=== PATIENT | female | born 1935 | race Caucasian/White ===

== ENCOUNTER 2016-08-04 16:25 | Inpatient (IN) | payer MEDICARE ==
[2016-08-04] MEDS ORDERED: Albuterol/Ipratropium NEB.SOL* Albuterol 2.5 MG/Ipratropium 0.5 MG 3 ML INH ONE (18:05)
[2016-08-04] MEDS ORDERED: NS 0.9% 1000 ML* 1,000 ML IV SCH ×2 (18:15→21:00)
[2016-08-04 18:40] LABS: Hematocrit 44 % (35-47); Hemoglobin 14.4 g/dl (12.0-16.0); Mean Corpuscular HGB Conc 33 g/dl (31-36); Mean Corpuscular Hemoglobin 29 pg (27-31); Mean Corpuscular Volume 87 fL (80-97); Mean Platelet Volume 7 um3 (7.4-10.4); Red Cell Distribution Width 14 % (10.5-15); White Blood Count 19.3 10^3/ul (3.5-10.8)
[2016-08-04 18:41] LABS: Add Diff/Slide Review? Slide Review Added; Comments Flag Yes
[2016-08-04 18:54] LABS: Albumin 3.8 g/dL (3.2-5.2); BUN/Creatinine Ratio 10.3 (8-20); C Reactive Protein 115.74 mg/L (< 5.00); Calcium 9.7 mg/dL (8.6-10.3); EGFR African American 91.2 (>60); EGFR Non-African American 70.9 (>60); Globulin 3.8 g/dL (2-4); Magnesium 1.9 mg/dL (1.9-2.7); Potassium 3.8 mmol/L (3.5-5.0); Total Bilirubin 0.6 mg/dL (0.2-1.0); Total Protein 7.6 g/dL (6.4-8.9)
--- NOTE | 2016-08-04 18:55 | RAD ---
INDICATION: Productive cough. Shortness of breath, inspiratory crackles. Former tobacco use. Cardiac disease. COMPARISON: May 18, 2014 TECHNIQUE: Dual energy PA and routine lateral views of the chest were obtained. REPORT: Bilateral interstitial and alveolar opacities. Increased prominence of the interstitial markings compared with the prior exam. Probable small pleural effusions. Median sternotomy wires. Mild cardiomegaly. Unremarkable central pulmonary vasculature. IMPRESSION: The constellation of findings is concerning for bronchopneumonia superimposed on chronic obstructive pulmonary disease.
[2016-08-04 18:58] LABS: Troponin I 0.04 ng/mL (<0.04)
[2016-08-04] MEDS ORDERED: NS 0.9% 1000 ML* 2,000 ML IV ONE (19:11)
[2016-08-04] MEDS ORDERED: Levofloxacin 750 MG IVPREMIX(* 750 MG/150 ML BAG IVPB ONE (19:12)
[2016-08-04 19:39] LABS: TSH (Thyroid Stimulating Horm) 0.65 mcIU/mL (0.34-5.60)
--- NOTE | 2016-08-04 20:35 | ED ---
Peter Leroy Karl, scribed for Ismael Aleman MD on 08/04/16 at 1806 . Shortness of Breath - HPI Summary HPI Summary: Pt is an 80 y/o female brought in by her children that presents to the ED c/o SOB. Pt reported that she was having SOB, difficulty breathing, and has had a productive cough with green sputum since 07/09/16. Pt also reported nausea, chills, and nasal congestion in the morning when first waking up. Pt stated that lying flat slightly alleviates her symptoms while walking aggravates them. Pt denied CP, pedal edema, and rhinorrhea. Hx: CAD, HTN, HLD, former smoker. - History of Current Complaint Time Seen by Provider: 08/04/16 17:59 Hx Obtained From: Patient Onset/Duration: Gradual Onset, Lasting Weeks, Still Present Timing: Constant Current Severity: Moderate Dyspnea At: Rest Aggrevating Factors: Movement - walking Associated Signs & Symptoms: Cough (Productive) - green sputum, Chills, Nasal Congestion - Allergy/Home Medications Allergies/Adverse Reactions: Allergies Allergy/AdvReac Type Severity Reaction Status Date / Time Bee Venom Allergy Severe Swelling Verified 03/19/15 10:52 Penicillins Allergy Intermediate Hives Verified 03/19/15 10:52 Enalapril AdvReac Intermediate Coughing Verified 03/19/15 10:52 Lactose AdvReac Intermediate Nausea Verified 03/19/15 10:52 Ramipril [From Altace] AdvReac Intermediate Coughing Verified 03/19/15 10:52 Statins AdvReac Intermediate Leg Cramps Verified 03/19/15 10:52 Home Medications: Home Medications Aspirin EC Low Dose* [Ecotrin EC Low Dose*] 81 mg PO DAILY 08/04/16 [History Confirmed 08/04/16] Krill Oil [Krill Oil 1000 mg] 1 cap PO DAILY 08/04/16 [History Confirmed ] Levothyroxine TAB* [Synthroid TAB*] 88 mcg PO DAILY 08/04/16 [History Confirmed 08/04/16] Multivitamins/Minerals TAB* [Theragran/minerals TAB*] 1 tab PO DAILY 08/04/16 [ History Confirmed 08/04/16] amLODIPine TAB* [Norvasc TAB*] 2.5 mg PO DAILY 08/04/16 [History Confirmed 08/04] PMH/Surg Hx/FS Hx/Imm Hx Endocrine/Hematology History: Denies: Hx Diabetes Cardiovascular History: Reports: Hx Coronary Artery Disease, Hx Hypercholesterolemia, Hx Hypertension, Hx Valvular Heart Disease Denies: Hx Angina Respiratory History: Denies: Hx Asthma, Hx Chronic Obstructive Pulmonary Disease (COPD) - Cancer History Hx Chemotherapy: No Hx Radiation Therapy: No - Family History Known Family History: Negative: Cardiac Disease, Hypertension, Diabetes - Social History Alcohol Use: None Substance Use Type: Reports: None Smoking Status (MU): Former Smoker Type: Cigarettes Have You Smoked in the Last Year: No Review of Systems Positive: Chills Eyes: Negative ENT: Other - nasal congestion Negative: Nasal Discharge Cardiovascular: Other - tachycardia Negative: Chest Pain Positive: Shortness Of Breath, Cough - productive w/ green sputum Gastrointestinal: Negative Genitourinary: Negative Negative: Edema Skin: Negative Neurological: Negative Psychological: Normal All Other Systems Reviewed And Are Negative: Yes Physical Exam Triage Information Reviewed: Yes Vital Signs On Initial Exam: Initial Vital Signs Temp 99.9 F 08/04/16 17:58 Pulse 104 08/04/16 17:58 Resp 20 08/04/16 17:58 BP 173/62 08/04/16 17:58 Pulse Ox 94 08/04/16 17:58 Vital Signs Reviewed: Yes Appearance: Positive: Well-Appearing, No Pain Distress Skin: Positive: Warm, Skin Color Reflects Adequate Perfusion, Dry Head/Face: Positive: Normal Head/Face Inspection Eyes: Positive: EOMI, BRYSON ENT: Positive: Normal ENT inspection Neck: Positive: Supple, Nontender Respiratory/Lung Sounds: Positive: Breath Sounds Present, Other - inspiratory crackles bilaterally Cardiovascular: Positive: Tachycardia - at 104 bpm Abdomen Description: Positive: Nontender, Soft Bowel Sounds: Positive: Present Musculoskeletal: Positive: Normal, Strength/ROM Intact Neurological: Positive: Normal, Sensory/Motor Intact, Alert, Oriented to Person Place, Time Psychiatric: Positive: Affect/Mood Appropriate Diagnostics - Vital Signs Vital Signs Temp Pulse Resp BP Pulse Ox 08/04/16 18:37 91 19 96 08/04/16 18:24 20 08/04/16 17:58 99.9 F 104 20 173/62 94 - Laboratory Lab Results: Lab Results 08/04/16 08/04/16 08/04/16 Range/Units 18:27 18:27 18:27 WBC 19.3 H (3.5-10.8) 10^3/ul RBC 5.00 (4.0-5.4) 10^6/ul Hgb 14.4 (12.0-16.0) g/dl Hct 44 (35-47) % MCV 87 (80-97) fL MCH 29 (27-31) pg MCHC 33 (31-36) g/dl RDW 14 (10.5-15) % Plt Count 365 (150-450) 10^3/ul MPV 7 L (7.4-10.4) um3 Neut % (Auto) 89.2 H (38-83) % Lymph % (Auto) 5.6 L (25-47) % Sawyer % (Auto) 4.2 (1-9) % Eos % (Auto) 0.5 (0-6) % Baso % (Auto) 0.5 (0-2) % Absolute Neuts (auto) 17.2 H (1.5-7.7) 10^3/ul Absolute Lymphs (auto) 1.1 (1.0-4.8) 10^3/ul Absolute Monos (auto) 0.8 (0-0.8) 10^3/ul Absolute Eos (auto) 0.1 (0-0.6) 10^3/ul Absolute Basos (auto) 0.1 (0-0.2) 10^3/ul Absolute Nucleated RBC 0 10^3/ul Nucleated RBC % 0 INR (Anticoag Therapy) 1.10 (0.89-1.11) APTT 33.7 (26.0-36.3) seconds Sodium 133 (133-145) mmol/L Potassium 3.8 (3.5-5.0) mmol/L Chloride 98 L (101-111) mmol/L Carbon Dioxide 25 (22-32) mmol/L Anion Gap 10 (2-11) mmol/L BUN 8 (6-24) mg/dL Creatinine 0.78 (0.51-0.95) mg/dL Est GFR ( Amer) 91.2 (>60) Est GFR (Non-Af Amer) 70.9 (>60) BUN/Creatinine Ratio 10.3 (8-20) Glucose 119 H (70-100) mg/dL Lactic Acid (0.5-2.0) mmol/L Calcium 9.7 (8.6-10.3) mg/dL Magnesium 1.9 (1.9-2.7) mg/dL Total Bilirubin 0.60 (0.2-1.0) mg/dL AST 26 (13-39) U/L ALT 22 (7-52) U/L Alkaline Phosphatase 79 (34-104) U/L Total Creatine Kinase 62 (10-223) U/L CK-MB (CK-2) 3.9 (0.6-6.3) ng/mL Troponin I 0.04 H* (<0.04) ng/mL C-Reactive Protein 115.74 H (< 5.00) mg/L B-Natriuretic Peptide ( - 100) pg/mL Total Protein 7.6 (6.4-8.9) g/dL Albumin 3.8 (3.2-5.2) g/dL Globulin 3.8 (2-4) g/dL Albumin/Globulin Ratio 1.0 (1-3) Lipase 43 (11.0-82.0) U/L TSH 0.65 (0.34-5.60) mcIU/mL 08/04/16 08/04/16 Range/Units 18:27 18:27 WBC (3.5-10.8) 10^3/ul RBC (4.0-5.4) 10^6/ul Hgb (12.0-16.0) g/dl Hct (35-47) % MCV (80-97) fL MCH (27-31) pg MCHC (31-36) g/dl RDW (10.5-15) % Plt Count (150-450) 10^3/ul MPV (7.4-10.4) um3 Neut % (Auto) (38-83) % Lymph % (Auto) (25-47) % Sawyer % (Auto) (1-9) % Eos % (Auto) (0-6) % Baso % (Auto) (0-2) % Absolute Neuts (auto) (1.5-7.7) 10^3/ul Absolute Lymphs (auto) (1.0-4.8) 10^3/ul Absolute Monos (auto) (0-0.8) 10^3/ul Absolute Eos (auto) (0-0.6) 10^3/ul Absolute Basos (auto) (0-0.2) 10^3/ul Absolute Nucleated RBC 10^3/ul Nucleated RBC % INR (Anticoag Therapy) (0.89-1.11) APTT (26.0-36.3) seconds Sodium (133-145) mmol/L Potassium (3.5-5.0) mmol/L Chloride (101-111) mmol/L Carbon Dioxide (22-32) mmol/L Anion Gap (2-11) mmol/L BUN (6-24) mg/dL Creatinine (0.51-0.95) mg/dL Est GFR ( Amer) (>60) Est GFR (Non-Af Amer) (>60) BUN/Creatinine Ratio (8-20) Glucose (70-100) mg/dL Lactic Acid 1.7 (0.5-2.0) mmol/L Calcium (8.6-10.3) mg/dL Magnesium (1.9-2.7) mg/dL Total Bilirubin (0.2-1.0) mg/dL AST (13-39) U/L ALT (7-52) U/L Alkaline Phosphatase (34-104) U/L Total Creatine Kinase (10-223) U/L CK-MB (CK-2) (0.6-6.3) ng/mL Troponin I (<0.04) ng/mL C-Reactive Protein (< 5.00) mg/L B-Natriuretic Peptide 112 H ( - 100) pg/mL Total Protein (6.4-8.9) g/dL Albumin (3.2-5.2) g/dL Globulin (2-4) g/dL Albumin/Globulin Ratio (1-3) Lipase (11.0-82.0) U/L TSH (0.34-5.60) mcIU/mL Result Diagrams: 08/04/16 18:27 08/04/16 18:27 Lab Statement: Any lab studies that have been ordered have been reviewed, and results considered in the medical decision making process. - Radiology CXR Xray Interpretation: Positive (See Comments) Radiology Interpretation Completed By: Radiologist - IMPRESSION: The constellation of findings is concerning for bronchopneumonia superimposed on chronic obstructive pulmonary disease. - EKG 16:35 Cardiac Rate: Tachycardia - at 111 bpm EKG Rhythm: Sinus Tachycardia Ectopy: None EKG Interpretation: LVH Course/Dx - Course Assessment/Plan: DISCUSSED RESULTS WITH PATIENT. ON SATS LOW 80'S. ADMIT HOSPITALIST STABLE. - Diagnoses Provider Diagnoses: Pneumonia, Hypoxia Discharge - Discharge Plan Condition: Stable Disposition: ADMITTED TO [facility] Referrals: Quiana Panda MD [Primary Care Provider] - The documentation as recorded by the Peter sam Karl accurately reflects the service I personally performed and the decisions made by me, Ismael Aleman MD.
--- NOTE | 2016-08-04 20:38 | HP ---
H&P (Free Text) History and Physical: PCP: Miguel Virgen MD Date/Time of Evaluation: 08/04/20162034 CC: SOB HPI: Mrs Thomas is an 80YO female presents at encouragement of family for evaluation of cough productive of green phlegm since 07/09/2016. She has had gradual worsening of her condition to include chills, nausea without emesis, and exertional dyspnea. She denies chest pain, focal W/N/T, or other issues. Work up is significant for sepsis (leukocytosis, tachycardia, tachypnea, & hypoxia) 2nd CAP with an indeterminate troponin of 0.04. PMedHx CAD/3vCABG HTN hypothyroidism HLD Allergies Bee Venom Allergy (Severe, Verified 03/19/15 10:52) Swelling Penicillins Allergy (Intermediate, Verified 03/19/15 10:52) Hives Enalapril Adverse Reaction (Intermediate, Verified 03/19/15 10:52) Coughing Lactose Adverse Reaction (Intermediate, Verified 03/19/15 10:52) Nausea Ramipril [From Altace] Adverse Reaction (Intermediate, Verified 03/19/15 10:52) Coughing Statins Adverse Reaction (Intermediate, Verified 03/19/15 10:52) Leg Cramps Ambulatory Orders Calcium Carbonate-Cholecalcife [Calcium 600+D 600-800 mg-Unit] 1 tab PO DAILY Aspirin EC Low Dose* [Ecotrin EC Low Dose*] 81 mg PO DAILY 08/04/16 Krill Oil [Krill Oil 1000 mg] 1 cap PO DAILY 08/04/16 Levothyroxine TAB* [Synthroid TAB*] 88 mcg PO DAILY 08/04/16 Multivitamins/Minerals TAB* [Theragran/minerals TAB*] 1 tab PO DAILY 08/04/16 amLODIPine TAB* [Norvasc TAB*] 2.5 mg PO DAILY 08/04/16 SocHx: former smoker, no alcohol or recreational drugs; lives alone; full code status FamHx: reviewed, non-contributory ROS: as above, otherwise reviewed and all were negative Constitutional: NAD, normally developed, overweight elderly white female vitals: Vital Signs Temp 37.7 C 08/04/16 17:58 Pulse 94 08/04/16 18:37 Resp 21 08/04/16 18:37 BP 173/62 08/04/16 17:58 Pulse Ox 96 08/04/16 18:37 Intake & Output 08/03/16 08/04/16 08/04/16 23:59 11:59 23:59 Weight 143 lb HEENM: atraumatic; sclera/conjunctiva: non-icteric/clear; blephara: normal; hearing: clinically intact; oropharynx: clear, mucosa moist Neck: soft tissue: non-tender; thyroid: normal Pulmonary: mild LLL crackle with scant B end-expiratory wheeze, good to fair aeration, no accessory muscle use CV: TR/RR, normal S1S2, no carotid bruit, no jugular venous distention, 2+ B DP/ PT, no edema Abdominal: soft, non-distended, non-tender, no rebound/guarding/rigidity, normoactive bowel sounds, no hepatosplenomegaly or masses, no costovertebral angle tenderness Musculoskeletal: general: grossly intact; gait: stable Integumental: normal appearance and texture Psychiatric orientation: AA&O to PPS affect: calm mood: pleasant eye contact: good content: reliable responses: timely insight: fair Testing: Lab Results 08/04/16 08/04/16 08/04/16 Range/Units 18:27 18:27 18:27 WBC 19.3 H (3.5-10.8) 10^3/ul RBC 5.00 (4.0-5.4) 10^6/ul Hgb 14.4 (12.0-16.0) g/dl Hct 44 (35-47) % MCV 87 (80-97) fL MCH 29 (27-31) pg MCHC 33 (31-36) g/dl RDW 14 (10.5-15) % Plt Count 365 (150-450) 10^3/ul MPV 7 L (7.4-10.4) um3 Neut % (Auto) 89.2 H (38-83) % Lymph % (Auto) 5.6 L (25-47) % Preble % (Auto) 4.2 (1-9) % Eos % (Auto) 0.5 (0-6) % Baso % (Auto) 0.5 (0-2) % Absolute Neuts (auto) 17.2 H (1.5-7.7) 10^3/ul Absolute Lymphs (auto) 1.1 (1.0-4.8) 10^3/ul Absolute Monos (auto) 0.8 (0-0.8) 10^3/ul Absolute Eos (auto) 0.1 (0-0.6) 10^3/ul Absolute Basos (auto) 0.1 (0-0.2) 10^3/ul Absolute Nucleated RBC 0 10^3/ul Nucleated RBC % 0 INR (Anticoag Therapy) 1.10 (0.89-1.11) APTT 33.7 (26.0-36.3) seconds Sodium 133 (133-145) mmol/L Potassium 3.8 (3.5-5.0) mmol/L Chloride 98 L (101-111) mmol/L Carbon Dioxide 25 (22-32) mmol/L Anion Gap 10 (2-11) mmol/L BUN 8 (6-24) mg/dL Creatinine 0.78 (0.51-0.95) mg/dL Est GFR ( Amer) 91.2 (>60) Est GFR (Non-Af Amer) 70.9 (>60) BUN/Creatinine Ratio 10.3 (8-20) Glucose 119 H (70-100) mg/dL Lactic Acid (0.5-2.0) mmol/L Calcium 9.7 (8.6-10.3) mg/dL Magnesium 1.9 (1.9-2.7) mg/dL Total Bilirubin 0.60 (0.2-1.0) mg/dL AST 26 (13-39) U/L ALT 22 (7-52) U/L Alkaline Phosphatase 79 (34-104) U/L Total Creatine Kinase 62 (10-223) U/L CK-MB (CK-2) 3.9 (0.6-6.3) ng/mL Troponin I 0.04 H* (<0.04) ng/mL C-Reactive Protein 115.74 H (< 5.00) mg/L B-Natriuretic Peptide ( - 100) pg/mL Total Protein 7.6 (6.4-8.9) g/dL Albumin 3.8 (3.2-5.2) g/dL Globulin 3.8 (2-4) g/dL Albumin/Globulin Ratio 1.0 (1-3) Lipase 43 (11.0-82.0) U/L TSH 0.65 (0.34-5.60) mcIU/mL 08/04/16 08/04/16 Range/Units 18:27 18:27 WBC (3.5-10.8) 10^3/ul RBC (4.0-5.4) 10^6/ul Hgb (12.0-16.0) g/dl Hct (35-47) % MCV (80-97) fL MCH (27-31) pg MCHC (31-36) g/dl RDW (10.5-15) % Plt Count (150-450) 10^3/ul MPV (7.4-10.4) um3 Neut % (Auto) (38-83) % Lymph % (Auto) (25-47) % Preble % (Auto) (1-9) % Eos % (Auto) (0-6) % Baso % (Auto) (0-2) % Absolute Neuts (auto) (1.5-7.7) 10^3/ul Absolute Lymphs (auto) (1.0-4.8) 10^3/ul Absolute Monos (auto) (0-0.8) 10^3/ul Absolute Eos (auto) (0-0.6) 10^3/ul Absolute Basos (auto) (0-0.2) 10^3/ul Absolute Nucleated RBC 10^3/ul Nucleated RBC % INR (Anticoag Therapy) (0.89-1.11) APTT (26.0-36.3) seconds Sodium (133-145) mmol/L Potassium (3.5-5.0) mmol/L Chloride (101-111) mmol/L Carbon Dioxide (22-32) mmol/L Anion Gap (2-11) mmol/L BUN (6-24) mg/dL Creatinine (0.51-0.95) mg/dL Est GFR ( Amer) (>60) Est GFR (Non-Af Amer) (>60) BUN/Creatinine Ratio (8-20) Glucose (70-100) mg/dL Lactic Acid 1.7 (0.5-2.0) mmol/L Calcium (8.6-10.3) mg/dL Magnesium (1.9-2.7) mg/dL Total Bilirubin (0.2-1.0) mg/dL AST (13-39) U/L ALT (7-52) U/L Alkaline Phosphatase (34-104) U/L Total Creatine Kinase (10-223) U/L CK-MB (CK-2) (0.6-6.3) ng/mL Troponin I (<0.04) ng/mL C-Reactive Protein (< 5.00) mg/L B-Natriuretic Peptide 112 H ( - 100) pg/mL Total Protein (6.4-8.9) g/dL Albumin (3.2-5.2) g/dL Globulin (2-4) g/dL Albumin/Globulin Ratio (1-3) Lipase (11.0-82.0) U/L TSH (0.34-5.60) mcIU/mL ECG, personally reviewed: sinus tachycardia w/ PACs rate 111, no ischemia CXR, personally reviewed: IMPRESSION: The constellation of findings is concerning for bronchopneumonia superimposed on chronic obstructive pulmonary disease. Impression: 80F presenting with sepsis 2nd CAP DIAGNOSIS & PLAN Primary sepsis (leukocytosis, tachycardia, tachypnea, hypoxia) 2nd CAP : IVFs : IV levofloxacin : blood & sputum CXs : urine Legionella & S pneumo antigens : rapid influenza : supplemental oxygen : supportive care elevated troponin : suspect demand ischemia : telemetry : aspirin : trend COPD exacerbation : albuterol nebs : mometasone/formoterol : tiotropium : incentive spirometry : guaifenesin : supplemental oxygen : methylprednisolone IV Secondary HTN : continue amlodipine, monitor CAD : continue aspirin hypothyroidism : continue levothyroxine HLD : heart healthy diet Admission Rational: inpatient for management of sepsis via IVFs & IV ABX in patient at high risk of rapid severe/terminal decompensation DVTp: heparin SQ & SCDs Code Status: full HCP: son, Juan
[2016-08-04] MEDS ORDERED: CMCS: Melatonin (NF) 3 MG TAB PO PRN (20:53)
[2016-08-04] MEDS ORDERED: Albuterol 2.5 MG/3 ML NEB.SOL* (0.083%) INH PRN (20:53)
[2016-08-04] MEDS ORDERED: Acetaminophen TAB* 325 MG PO PRN (20:53)
[2016-08-04] MEDS ORDERED: Morphine INJ* 2 MG/ML 1 ML CARPUJECT IV PRN (20:53)
[2016-08-04] MEDS ORDERED: traMADol TAB* 50 MG PO PRN (20:54)
[2016-08-04] MEDS ORDERED: Ondansetron INJ* 2 MG/ML VIAL IV PRN (20:54)
[2016-08-04] MEDS ORDERED: methylPREDNISolone 125 MG* 2 ML VIAL IV ONE (20:55)
[2016-08-04 23:04] LABS: Urine Bacteria 3+ (Absent); Urine Bilirubin Negative (Negative); Urine Glucose Negative (Negative); Urine Nitrite Negative (Negative)
[2016-08-04] MEDS: Docusate CAP* 100 MG PO SCH (23:46)
[2016-08-04] MEDS: Aspirin TAB* 325 MG PO SCH (23:46)
[2016-08-05] MEDS: Albuterol 2.5 MG/3 ML NEB.SOL* (0.083%) INH SCH ×4 (00:03→19:20)
[2016-08-05] MEDS: Mometasone/Formoter 200/5 MDI INH SCH ×3 (00:04→19:21)
[2016-08-05] MEDS: Heparin VIAL(*) 5000 UNITS/ML VIAL (FIVE THOUSAND) SUBCUT SCH ×3 (05:36→22:06)
[2016-08-05] MEDS: Levothyroxine TAB* 88 MCG TAB PO SCH (05:37)
[2016-08-05] MEDS: Omeprazole CAP* 20 MG PO SCH (05:37)
[2016-08-05 05:58] LABS: Hematocrit 39 % (35-47); Hemoglobin 12.9 g/dl (12.0-16.0); Mean Corpuscular HGB Conc 33 g/dl (31-36); Mean Corpuscular Hemoglobin 29 pg (27-31); Mean Corpuscular Volume 87 fL (80-97); Mean Platelet Volume 7 um3 (7.4-10.4); Red Blood Count 4.52 10^6/ul (4.0-5.4); Red Cell Distribution Width 13 % (10.5-15)
[2016-08-05 06:15] LABS: BUN/Creatinine Ratio 11.4 (8-20); Calcium 8.6 mg/dL (8.6-10.3); EGFR African American 103.3 (>60); EGFR Non-African American 80.3 (>60); Potassium 3.5 mmol/L (3.5-5.0)
[2016-08-05] MEDS: Tiotropium CAP.INH* CAP.INH/18 MCG (USE ORDER SET !) INH SCH (07:38)
[2016-08-05] MEDS: methylPREDNISolone SOD 40 MG* 1 ML VIAL IV SCH ×2 (08:54→17:10)
[2016-08-05] MEDS: Aspirin TAB* 325 MG PO SCH (08:55)
[2016-08-05] MEDS: Docusate CAP* 100 MG PO SCH ×2 (08:55→20:38)
[2016-08-05] MEDS ORDERED: Spiriva Inhaler DEVICE* 1 EACH DEVICE INH ONE (09:00)
[2016-08-05] MEDS ORDERED: amLODIPine TAB* 5 MG PO SCH (09:00)
[2016-08-05] MEDS: Aspirin Low Dose CHEW TAB* 81 MG PO SCH (10:06)
[2016-08-05 10:38] LABS: Troponin I 0.05 ng/mL (<0.04)
--- NOTE | 2016-08-05 11:05 | PN ---
Subjective Date of Service: 08/05/16 Interval History: Patient seen and examined at bedside. She reports improvement in her breathing but states she still feels very fatigued and becomes easily winded. She lives alone. She does not wear oxygen at home but still requires O2 this AM. She denies CP, abd pain, n/v, fever/chills. No nursing concerns this AM. Telemetry: SR 70s-80s Family History: Unchanged from Admission Social History: Unchanged from Admission Past Medical History: Unchanged from Admission Objective Active Medications: Acetaminophen (Tylenol Tab*) 650 mg PO Q6H PRN PRN Reason: FEVER/PAIN Albuterol (Ventolin 2.5 Mg/3 Ml Neb.[place]*) 2.5 mg INH Q2H PRN PRN Reason: SOB/WHEEZING Albuterol (Ventolin 2.5 Mg/3 Ml Neb.[place]*) 2.5 mg INH [id number] AWAKE [facility] Last Admin: 08/05/16 07:37 Dose: 2.5 mg Amlodipine Besylate (Norvasc Tab*) 2.5 mg PO DAILY [facility] Last Admin: 08/05/16 08:55 Dose: 2.5 mg Aspirin (Aspirin Low Dose Tab*) 81 mg PO DAILY [facility] Last Admin: 08/05/16 10:06 Dose: 81 mg Docusate Sodium (Colace Cap*) 200 mg PO BID [facility] Last Admin: 08/05/16 08:55 Dose: 200 mg Heparin Sodium (Porcine) (Heparin Vial(*)) 5,000 units SUBCUT Q8HR [facility] Last Admin: 08/05/16 05:36 Dose: 5,000 units Sodium Chloride (Ns 0.9% 1000 Ml*) 1,000 mls @ 125 mls/hr IV PER RATE [facility] Levofloxacin/Dextrose (Levaquin 750 Mg Ivpremix(*)) 750 mg in 150 mls @ 100 mls /hr IVPB Q24H [facility] Levothyroxine Sodium (Synthroid Tab*) 88 mcg PO DAILY@0600 [facility] Last Admin: 08/05/16 05:37 Dose: 88 mcg Melatonin (Melatonin (Nf)) 3 mg PO BEDTIME PRN; Protocol PRN Reason: Sleep Methylprednisolone Sodium Succinate (Solu-Medrol*) 40 mg IV Q8H [facility] Last Admin: 08/05/16 08:54 Dose: 40 mg Mometasone Furoate/Formoterol Fumar (Dulera 200/5 Mdi*) 2 puff INH BID [facility] Last Admin: 08/05/16 07:38 Dose: 2 puff Morphine Sulfate (Morphine Inj (Syringe)*) 1 mg IV Q2H PRN PRN Reason: air hunger Omeprazole (Prilosec Cap*) 20 mg PO DAILY@0600 [facility] Last Admin: 08/05/16 05:37 Dose: 20 mg Ondansetron HCl (Zofran Inj*) 4 mg IV Q6H PRN PRN Reason: NAUSEA Tiotropium [place] (Spiriva Cap.Inh*) 1 cap INH DAILY [facility] Last Admin: 08/05/16 07:38 Dose: 1 cap.inh Tramadol HCl (Ultram*) 50 mg PO Q6H PRN PRN Reason: PAIN Vital Signs 08/04/16 08/04/16 08/04/16 21:00 21:30 22:00 Temperature Pulse Rate 87 91 80 Respiratory 26 22 25 Rate Blood Pressure 140/56 122/98 145/46 (mmHg) O2 Sat by Pulse 96 93 94 Oximetry 08/04/16 08/05/16 08/05/16 23:30 00:05 02:39 Temperature 97.7 F Pulse Rate 78 82 Respiratory 18 22 Rate Blood Pressure 154/52 (mmHg) O2 Sat by Pulse 91 96 96 Oximetry 08/05/16 08/05/16 08/05/16 03:49 07:42 08:05 Temperature 97.8 F Pulse Rate 83 82 99 Respiratory 24 14 16 Rate Blood Pressure 148/62 159/60 (mmHg) O2 Sat by Pulse 97 94 93 Oximetry Oxygen Devices in Use Now: Nasal Cannula - 3Lnc Appearance: Older female, sitting on edge of bed, audibly wheezing, in NAD Eyes: PERRLA Ears/Nose/Mouth/Throat: Clear Oropharnyx, Mucous Membranes Moist Neck: NL Appearance and Movements; NL JVP Respiratory: Symmetrical Chest Expansion and Respiratory Effort, Clear to Auscultation - with scattered wheezes, prolonged expiratory phase Cardiovascular: NL Sounds; No Murmurs; No JVD, RRR Abdominal: NL Sounds; No Tenderness; No Distention Extremities: No Clubbing, Cyanosis - trace LE edema Skin: No Rash or Ulcers Neurological: Alert and Oriented x 3 Lines/Tubes/Other Access: Clean, Dry and Intact Peripheral IV Nutrition: Taking PO's Result Diagrams: 08/05/16 04:48 08/05/16 04:48 Additional Lab and Data: Lab Results 08/04/16 08/04/16 08/04/16 Range/Units 18:27 18:27 18:27 WBC 19.3 H (3.5-10.8) 10^3/ul RBC 5.00 (4.0-5.4) 10^6/ul Hgb 14.4 (12.0-16.0) g/dl Hct 44 (35-47) % MCV 87 (80-97) fL MCH 29 (27-31) pg MCHC 33 (31-36) g/dl RDW 14 (10.5-15) % Plt Count 365 (150-450) 10^3/ul MPV 7 L (7.4-10.4) um3 Neut % (Auto) 89.2 H (38-83) % Lymph % (Auto) 5.6 L (25-47) % [place] % (Auto) 4.2 (1-9) % Eos % (Auto) 0.5 (0-6) % Baso % (Auto) 0.5 (0-2) % Absolute Neuts (auto) 17.2 H (1.5-7.7) 10^3/ul Absolute Lymphs (auto) 1.1 (1.0-4.8) 10^3/ul Absolute Monos (auto) 0.8 (0-0.8) 10^3/ul Absolute Eos (auto) 0.1 (0-0.6) 10^3/ul Absolute Basos (auto) 0.1 (0-0.2) 10^3/ul Absolute Nucleated RBC 0 10^3/ul Nucleated RBC % 0 INR (Anticoag Therapy) 1.10 (0.89-1.11) APTT 33.7 (26.0-36.3) seconds Sodium 133 (133-145) mmol/L Potassium 3.8 (3.5-5.0) mmol/L Chloride 98 L (101-111) mmol/L Carbon Dioxide 25 (22-32) mmol/L Anion Gap 10 (2-11) mmol/L BUN 8 (6-24) mg/dL Creatinine 0.78 (0.51-0.95) mg/dL Est GFR ( Amer) 91.2 (>60) Est GFR (Non-Af Amer) 70.9 (>60) BUN/Creatinine Ratio 10.3 (8-20) Glucose 119 H (70-100) mg/dL Lactic Acid (0.5-2.0) mmol/L Calcium 9.7 (8.6-10.3) mg/dL Magnesium 1.9 (1.9-2.7) mg/dL Total Bilirubin 0.60 (0.2-1.0) mg/dL AST 26 (13-39) U/L ALT 22 (7-52) U/L Alkaline Phosphatase 79 (34-104) U/L Total Creatine Kinase 62 (10-223) U/L CK-MB (CK-2) 3.9 (0.6-6.3) ng/mL Troponin I 0.04 H* (<0.04) ng/mL C-Reactive Protein 115.74 H (< 5.00) mg/L B-Natriuretic Peptide ( - 100) pg/mL Total Protein 7.6 (6.4-8.9) g/dL Albumin 3.8 (3.2-5.2) g/dL Globulin 3.8 (2-4) g/dL Albumin/Globulin Ratio 1.0 (1-3) Lipase 43 (11.0-82.0) U/L TSH 0.65 (0.34-5.60) mcIU/mL 08/04/16 08/04/16 Range/Units 18:27 18:27 WBC (3.5-10.8) 10^3/ul RBC (4.0-5.4) 10^6/ul Hgb (12.0-16.0) g/dl Hct (35-47) % MCV (80-97) fL MCH (27-31) pg MCHC (31-36) g/dl RDW (10.5-15) % Plt Count (150-450) 10^3/ul MPV (7.4-10.4) um3 Neut % (Auto) (38-83) % Lymph % (Auto) (25-47) % [place] % (Auto) (1-9) % Eos % (Auto) (0-6) % Baso % (Auto) (0-2) % Absolute Neuts (auto) (1.5-7.7) 10^3/ul Absolute Lymphs (auto) (1.0-4.8) 10^3/ul Absolute Monos (auto) (0-0.8) 10^3/ul Absolute Eos (auto) (0-0.6) 10^3/ul Absolute Basos (auto) (0-0.2) 10^3/ul Absolute Nucleated RBC 10^3/ul Nucleated RBC % INR (Anticoag Therapy) (0.89-1.11) APTT (26.0-36.3) seconds Sodium (133-145) mmol/L Potassium (3.5-5.0) mmol/L Chloride (101-111) mmol/L Carbon Dioxide (22-32) mmol/L Anion Gap (2-11) mmol/L BUN (6-24) mg/dL Creatinine (0.51-0.95) mg/dL Est GFR ( Amer) (>60) Est GFR (Non-Af Amer) (>60) BUN/Creatinine Ratio (8-20) Glucose (70-100) mg/dL Lactic Acid 1.7 (0.5-2.0) mmol/L Calcium (8.6-10.3) mg/dL Magnesium (1.9-2.7) mg/dL Total Bilirubin (0.2-1.0) mg/dL AST (13-39) U/L ALT (7-52) U/L Alkaline Phosphatase (34-104) U/L Total Creatine Kinase (10-223) U/L CK-MB (CK-2) (0.6-6.3) ng/mL Troponin I (<0.04) ng/mL C-Reactive Protein (< 5.00) mg/L B-Natriuretic Peptide 112 H ( - 100) pg/mL Total Protein (6.4-8.9) g/dL Albumin (3.2-5.2) g/dL Globulin (2-4) g/dL Albumin/Globulin Ratio (1-3) Lipase (11.0-82.0) U/L TSH (0.34-5.60) mcIU/mL Microbiology and Other Data: Microbiology 08/04/16 22:39 Legionella Urinary Antigen - Final Urine Negative Legionella Streptococcus pneumoniae Ag Screen - Final Negative S. pneumo Antigen 08/04/16 22:40 Nasal Screen MRSA (PCR)([facility]) - Final Nasal Mrsa Negative 08/04/16 22:30 Influenza Types A,B Antigen ([facility]) - Final Nasopharyngeal Specimen received for Influenza A/B Molecular testing Assess/Plan/Problems-Billing Assessment: Ms. Avila is an 80 yo female with a PMH of CAD, HTN, hypothyroidism, and HLD who presented to the ED on 08/04/16 with SOB that is secondary to bronchopneumonia and COPD exacerbation. - Patient Problems (1) Community acquired pneumonia Code(s): J18.9 - PNEUMONIA, UNSPECIFIED ORGANISM Comment: Blood and sputum cultures pending Urine legionella and strep pneumo negative, rapid flu negative Continue levofloxacin Continue supplemental oxygen (2) Sepsis Comment: As evidenced by leukocytosis, tachycardia, tachypnea, and hypoxia WBC count improved Continue IVF, levofloxacin CXR shows concern for bronchopneumonia superimposed on COPD (3) Elevated troponin Code(s): R79.89 - OTHER SPECIFIED ABNORMAL FINDINGS OF BLOOD CHEMISTRY Comment : Patient continues to deny chest pain Suspect secondary to demand ischemia from CAP and COPD exacerbation Patient in sinus rhythm on telemetry Recheck EKG Max trop 0.06 (4) COPD exacerbation Code(s): J44.1 - CHRONIC OBSTRUCTIVE PULMONARY DISEASE W (ACUTE) EXACERBATION Comment: Patient not on any inhalers or nebulizers at home. No PFTs or spirometry on record but CXR suspicious for COPD Continue prn nebulizers, Dulera, Spiriva Continue Solu-medrol (5) HTN (hypertension) Code(s): I10 - ESSENTIAL (PRIMARY) HYPERTENSION Comment: Mildly hypertensive, continue amlodipine. (6) CAD (coronary artery disease) Code(s): I25.10 - ATHSCL HEART DISEASE OF [place] CORONARY ARTERY W/O ANG PCTRS Comment: Continue ASA at 81 mg. (7) Hypothyroidism Code(s): E03.9 - HYPOTHYROIDISM, UNSPECIFIED Comment: TSH 0.65, continue levothyroxine. (8) HLD (hyperlipidemia) Code(s): E78.5 - HYPERLIPIDEMIA, UNSPECIFIED Comment: Heart healthy diet. (9) DVT prophylaxis Comment: SQ heparin Status and Disposition: Inpatient admission. Anticipate LOS >2 days.
[2016-08-05] MEDS ORDERED: hydrALAZINE IV* 20 MG/ML VIAL IV SLOW PU PRN (16:29)
[2016-08-05] MEDS: Levofloxacin 750 MG IVPREMIX(* 750 MG/150 ML BAG IVPB SCH (20:33)
[2016-08-06] MEDS: methylPREDNISolone SOD 40 MG* 1 ML VIAL IV SCH ×2 (01:04→08:52)
[2016-08-06] MEDS: Albuterol 2.5 MG/3 ML NEB.SOL* (0.083%) INH SCH ×2 (01:46→08:34)
[2016-08-06] MEDS: Heparin VIAL(*) 5000 UNITS/ML VIAL (FIVE THOUSAND) SUBCUT SCH ×3 (05:21→20:28)
[2016-08-06] MEDS: Omeprazole CAP* 20 MG PO SCH (05:21)
[2016-08-06] MEDS: Levothyroxine TAB* 88 MCG TAB PO SCH (05:21)
[2016-08-06 05:29] LABS: Hematocrit 37 % (35-47); Hemoglobin 12.1 g/dl (12.0-16.0); Mean Corpuscular HGB Conc 33 g/dl (31-36); Mean Corpuscular Hemoglobin 29 pg (27-31); Mean Corpuscular Volume 87 fL (80-97); Mean Platelet Volume 7 um3 (7.4-10.4); Red Blood Count 4.22 10^6/ul (4.0-5.4); Red Cell Distribution Width 14 % (10.5-15); White Blood Count 16.1 10^3/ul (3.5-10.8)
[2016-08-06 05:41] LABS: BUN/Creatinine Ratio 20.6 (8-20); Calcium 8.8 mg/dL (8.6-10.3); EGFR African American 116.6 (>60); EGFR Non-African American 90.7 (>60); Potassium 3.7 mmol/L (3.5-5.0)
[2016-08-06] MEDS: Mometasone/Formoter 200/5 MDI INH SCH ×2 (07:34→20:02)
[2016-08-06] MEDS: Tiotropium CAP.INH* CAP.INH/18 MCG (USE ORDER SET !) INH SCH (07:34)
[2016-08-06 08:28] LABS: C Reactive Protein 64.08 mg/L (< 5.00)
[2016-08-06] MEDS: Aspirin Low Dose CHEW TAB* 81 MG PO SCH (08:52)
[2016-08-06] MEDS: amLODIPine TAB* 5 MG PO SCH (08:52)
[2016-08-06] MEDS: Docusate CAP* 100 MG PO SCH ×3 (08:52→20:19)
--- NOTE | 2016-08-06 10:48 | PN ---
Subjective Date of Service: 08/06/16 Interval History: Patient seen and examined at bedside. She reports her breathing is improved, though she is still on O2. She does not wear O2 regularly. She reports no one ever told her she had COPD and reports never having PFTs or spirometry done. She denies CP, abd pain, n/v. She denies SOB at rest with the O2 but does admit to dyspnea with exertion. She lives at [facility] and reports having staff nearby. Telemetry: SR with PVCs, 80s Family History: Unchanged from Admission Social History: Unchanged from Admission Past Medical History: Unchanged from Admission Objective Active Medications: Acetaminophen (Tylenol Tab*) 650 mg PO Q6H PRN PRN Reason: FEVER/PAIN Albuterol (Ventolin 2.5 Mg/3 Ml Neb.[place]*) 2.5 mg INH Q2H PRN PRN Reason: SOB/WHEEZING Amlodipine Besylate (Norvasc Tab*) 5 mg PO DAILY [facility] Last Admin: 08/06/16 08:52 Dose: 5 mg Aspirin (Aspirin Low Dose Tab*) 81 mg PO DAILY [facility] Last Admin: 08/06/16 08:52 Dose: 81 mg Docusate Sodium (Colace Cap*) 200 mg PO BID [facility] Last Admin: 08/06/16 08:54 Dose: Not Given Heparin Sodium (Porcine) (Heparin Vial(*)) 5,000 units SUBCUT Q8HR [facility] Last Admin: 08/06/16 05:21 Dose: 5,000 units Hydralazine HCl (Apresoline Iv*) 5 mg IV SLOW PU Q6H PRN PRN Reason: BLOOD PRESSURE Last Admin: 08/05/16 17:28 Dose: 5 mg Levofloxacin/Dextrose (Levaquin 750 Mg Ivpremix(*)) 750 mg in 150 mls @ 100 mls /hr IVPB Q24H [facility] Last Admin: 08/05/16 20:33 Dose: 100 mls/hr Levothyroxine Sodium (Synthroid Tab*) 88 mcg PO DAILY@0600 [facility] Last Admin: 08/06/16 05:21 Dose: 88 mcg Melatonin (Melatonin (Nf)) 3 mg PO BEDTIME PRN; Protocol PRN Reason: Sleep Methylprednisolone Sodium Succinate (Solu-Medrol*) 40 mg IV Q8H [facility] Last Admin: 08/06/16 08:52 Dose: 40 mg Mometasone Furoate/Formoterol Fumar (Dulera 200/5 Mdi*) 2 puff INH BID [facility] Last Admin: 08/06/16 07:34 Dose: 2 puff Morphine Sulfate (Morphine Inj (Syringe)*) 1 mg IV Q2H PRN PRN Reason: air hunger Omeprazole (Prilosec Cap*) 20 mg PO DAILY@0600 [facility] Last Admin: 08/06/16 05:21 Dose: 20 mg Ondansetron HCl (Zofran Inj*) 4 mg IV Q6H PRN PRN Reason: NAUSEA Tiotropium [place] (Spiriva Cap.Inh*) 1 cap INH DAILY [facility] Last Admin: 08/06/16 07:34 Dose: 1 cap.inh Tramadol HCl (Ultram*) 50 mg PO Q6H PRN PRN Reason: PAIN Vital Signs 08/05/16 08/05/16 08/05/16 10:52 11:23 13:24 Temperature 98.0 F Pulse Rate 86 92 Respiratory 20 16 15 Rate Blood Pressure 146/81 (mmHg) O2 Sat by Pulse 94 99 Oximetry 08/05/16 08/05/16 08/05/16 15:19 16:23 16:27 Temperature 97.7 F Pulse Rate 88 93 Respiratory 18 Rate Blood Pressure 181/61 173/64 (mmHg) O2 Sat by Pulse 94 93 93 Oximetry 08/05/16 08/05/16 08/05/16 17:19 18:38 19:14 Temperature 97.3 F Pulse Rate 90 93 96 Respiratory 18 Rate Blood Pressure 181/68 155/58 166/58 (mmHg) O2 Sat by Pulse 95 93 95 Oximetry 08/05/16 08/05/16 08/06/16 19:22 20:00 00:30 Temperature Pulse Rate 87 Respiratory 20 17 Rate Blood Pressure (mmHg) O2 Sat by Pulse 93 93 Oximetry 08/06/16 08/06/16 08/06/16 01:08 04:58 07:50 Temperature 97.4 F 97.5 F Pulse Rate 90 86 Respiratory 16 16 16 Rate Blood Pressure 136/64 135/55 (mmHg) O2 Sat by Pulse 93 95 Oximetry 08/06/16 08/06/16 07:53 08:33 Temperature 97.6 F Pulse Rate 87 Respiratory 16 Rate Blood Pressure 157/64 (mmHg) O2 Sat by Pulse 99 93 Oximetry Oxygen Devices in Use Now: Nasal Cannula - 3Lnc Appearance: Older female patient, OOB to chair, in NAD Eyes: PERRLA Ears/Nose/Mouth/Throat: Clear Oropharnyx, Mucous Membranes Moist Neck: NL Appearance and Movements; NL JVP Respiratory: Symmetrical Chest Expansion and Respiratory Effort, Clear to Auscultation - prolonged expiratory phase Cardiovascular: NL Sounds; No Murmurs; No JVD, RRR Abdominal: NL Sounds; No Tenderness; No Distention Extremities: No Edema Skin: No Rash or Ulcers Neurological: Alert and Oriented x 3 Lines/Tubes/Other Access: Clean, Dry and Intact Peripheral IV Nutrition: Taking PO's Result Diagrams: 08/06/16 05:01 08/06/16 05:01 Additional Lab and Data: Lab Results 08/04/16 08/04/16 08/04/16 Range/Units 18:27 18:27 18:27 WBC 19.3 H (3.5-10.8) 10^3/ul RBC 5.00 (4.0-5.4) 10^6/ul Hgb 14.4 (12.0-16.0) g/dl Hct 44 (35-47) % MCV 87 (80-97) fL MCH 29 (27-31) pg MCHC 33 (31-36) g/dl RDW 14 (10.5-15) % Plt Count 365 (150-450) 10^3/ul MPV 7 L (7.4-10.4) um3 Neut % (Auto) 89.2 H (38-83) % Lymph % (Auto) 5.6 L (25-47) % [place] % (Auto) 4.2 (1-9) % Eos % (Auto) 0.5 (0-6) % Baso % (Auto) 0.5 (0-2) % Absolute Neuts (auto) 17.2 H (1.5-7.7) 10^3/ul Absolute Lymphs (auto) 1.1 (1.0-4.8) 10^3/ul Absolute Monos (auto) 0.8 (0-0.8) 10^3/ul Absolute Eos (auto) 0.1 (0-0.6) 10^3/ul Absolute Basos (auto) 0.1 (0-0.2) 10^3/ul Absolute Nucleated RBC 0 10^3/ul Nucleated RBC % 0 INR (Anticoag Therapy) 1.10 (0.89-1.11) APTT 33.7 (26.0-36.3) seconds Sodium 133 (133-145) mmol/L Potassium 3.8 (3.5-5.0) mmol/L Chloride 98 L (101-111) mmol/L Carbon Dioxide 25 (22-32) mmol/L Anion Gap 10 (2-11) mmol/L BUN 8 (6-24) mg/dL Creatinine 0.78 (0.51-0.95) mg/dL Est GFR ( Amer) 91.2 (>60) Est GFR (Non-Af Amer) 70.9 (>60) BUN/Creatinine Ratio 10.3 (8-20) Glucose 119 H (70-100) mg/dL Lactic Acid (0.5-2.0) mmol/L Calcium 9.7 (8.6-10.3) mg/dL Magnesium 1.9 (1.9-2.7) mg/dL Total Bilirubin 0.60 (0.2-1.0) mg/dL AST 26 (13-39) U/L ALT 22 (7-52) U/L Alkaline Phosphatase 79 (34-104) U/L Total Creatine Kinase 62 (10-223) U/L CK-MB (CK-2) 3.9 (0.6-6.3) ng/mL Troponin I 0.04 H* (<0.04) ng/mL C-Reactive Protein 115.74 H (< 5.00) mg/L B-Natriuretic Peptide ( - 100) pg/mL Total Protein 7.6 (6.4-8.9) g/dL Albumin 3.8 (3.2-5.2) g/dL Globulin 3.8 (2-4) g/dL Albumin/Globulin Ratio 1.0 (1-3) Lipase 43 (11.0-82.0) U/L TSH 0.65 (0.34-5.60) mcIU/mL 08/04/16 08/04/16 Range/Units 18:27 18:27 WBC (3.5-10.8) 10^3/ul RBC (4.0-5.4) 10^6/ul Hgb (12.0-16.0) g/dl Hct (35-47) % MCV (80-97) fL MCH (27-31) pg MCHC (31-36) g/dl RDW (10.5-15) % Plt Count (150-450) 10^3/ul MPV (7.4-10.4) um3 Neut % (Auto) (38-83) % Lymph % (Auto) (25-47) % [place] % (Auto) (1-9) % Eos % (Auto) (0-6) % Baso % (Auto) (0-2) % Absolute Neuts (auto) (1.5-7.7) 10^3/ul Absolute Lymphs (auto) (1.0-4.8) 10^3/ul Absolute Monos (auto) (0-0.8) 10^3/ul Absolute Eos (auto) (0-0.6) 10^3/ul Absolute Basos (auto) (0-0.2) 10^3/ul Absolute Nucleated RBC 10^3/ul Nucleated RBC % INR (Anticoag Therapy) (0.89-1.11) APTT (26.0-36.3) seconds Sodium (133-145) mmol/L Potassium (3.5-5.0) mmol/L Chloride (101-111) mmol/L Carbon Dioxide (22-32) mmol/L Anion Gap (2-11) mmol/L BUN (6-24) mg/dL Creatinine (0.51-0.95) mg/dL Est GFR ( Amer) (>60) Est GFR (Non-Af Amer) (>60) BUN/Creatinine Ratio (8-20) Glucose (70-100) mg/dL Lactic Acid 1.7 (0.5-2.0) mmol/L Calcium (8.6-10.3) mg/dL Magnesium (1.9-2.7) mg/dL Total Bilirubin (0.2-1.0) mg/dL AST (13-39) U/L ALT (7-52) U/L Alkaline Phosphatase (34-104) U/L Total Creatine Kinase (10-223) U/L CK-MB (CK-2) (0.6-6.3) ng/mL Troponin I (<0.04) ng/mL C-Reactive Protein (< 5.00) mg/L B-Natriuretic Peptide 112 H ( - 100) pg/mL Total Protein (6.4-8.9) g/dL Albumin (3.2-5.2) g/dL Globulin (2-4) g/dL Albumin/Globulin Ratio (1-3) Lipase (11.0-82.0) U/L TSH (0.34-5.60) mcIU/mL Microbiology and Other Data: Microbiology 08/04/16 22:39 Legionella Urinary Antigen - Final Urine Negative Legionella Streptococcus pneumoniae Ag Screen - Final Negative S. pneumo Antigen 08/04/16 22:40 Nasal Screen MRSA (PCR)([facility]) - Final Nasal Mrsa Negative 08/04/16 22:30 Influenza Types A,B Antigen ([facility]) - Final Nasopharyngeal Specimen received for Influenza A/B Molecular testing Assess/Plan/Problems-Billing Assessment: Ms. Avila is an 80 yo female with a PMH of CAD, HTN, hypothyroidism, and HLD who presented to the ED on 08/04/16 with SOB that is secondary to bronchopneumonia and COPD exacerbation. - Patient Problems (1) Community acquired pneumonia Code(s): J18.9 - PNEUMONIA, UNSPECIFIED ORGANISM Comment: Blood and sputum cultures pending Urine legionella and strep pneumo negative, rapid flu negative Continue levofloxacin Attempt to wean down O2 (2) Sepsis Comment: As evidenced by leukocytosis, tachycardia, tachypnea, and hypoxia WBC count improved Continue IVF, levofloxacin CXR shows concern for bronchopneumonia superimposed on COPD (3) Elevated troponin Code(s): R79.89 - OTHER SPECIFIED ABNORMAL FINDINGS OF BLOOD CHEMISTRY Comment : Patient continues to deny chest pain Suspect secondary to demand ischemia from CAP and COPD exacerbation Patient in sinus rhythm on telemetry Max trop 0.06 (4) COPD exacerbation Code(s): J44.1 - CHRONIC OBSTRUCTIVE PULMONARY DISEASE W (ACUTE) EXACERBATION Comment: Patient not on any inhalers or nebulizers at home. No PFTs or spirometry on record but CXR suspicious for COPD Continue prn nebulizers, Dulera, Spiriva Continue Solu-medrol (5) HTN (hypertension) Code(s): I10 - ESSENTIAL (PRIMARY) HYPERTENSION Comment: Mildly hypertensive, continue amlodipine at increased dose. PRN hydralazine (6) CAD (coronary artery disease) Code(s): I25.10 - ATHSCL HEART DISEASE OF [place] CORONARY ARTERY W/O ANG PCTRS Comment: Continue ASA at 81 mg. (7) Hypothyroidism Code(s): E03.9 - HYPOTHYROIDISM, UNSPECIFIED Comment: TSH 0.65, continue levothyroxine. (8) HLD (hyperlipidemia) Code(s): E78.5 - HYPERLIPIDEMIA, UNSPECIFIED Comment: Heart healthy diet. (9) DVT prophylaxis Comment: SQ heparin Status and Disposition: Inpatient admission. Anticipate LOS >2 days.
[2016-08-06] MEDS: Levofloxacin 750 MG IVPREMIX(* 750 MG/150 ML BAG IVPB SCH (20:20)
[2016-08-07] MEDS: Heparin VIAL(*) 5000 UNITS/ML VIAL (FIVE THOUSAND) SUBCUT SCH (05:25)
[2016-08-07] MEDS: Levothyroxine TAB* 88 MCG TAB PO SCH (05:25)
[2016-08-07] MEDS: Omeprazole CAP* 20 MG PO SCH (05:25)
[2016-08-07 06:37] LABS: Hematocrit 37 % (35-47); Hemoglobin 12.3 g/dl (12.0-16.0); Mean Corpuscular HGB Conc 33 g/dl (31-36); Mean Corpuscular Hemoglobin 29 pg (27-31); Mean Corpuscular Volume 87 fL (80-97); Mean Platelet Volume 7 um3 (7.4-10.4); Red Blood Count 4.28 10^6/ul (4.0-5.4); Red Cell Distribution Width 14 % (10.5-15); White Blood Count 14.7 10^3/ul (3.5-10.8)
[2016-08-07] MEDS ORDERED: predniSONE TAB* 20 MG PO SCH (09:00)
[2016-08-07] MEDS: amLODIPine TAB* 5 MG PO SCH (09:24)
[2016-08-07] MEDS: Aspirin Low Dose CHEW TAB* 81 MG PO SCH (09:24)
[2016-08-07] MEDS: Docusate CAP* 100 MG PO SCH (09:26)
[2016-08-07] MEDS: Mometasone/Formoter 200/5 MDI INH SCH (10:08)
[2016-08-07] MEDS: Tiotropium CAP.INH* CAP.INH/18 MCG (USE ORDER SET !) INH SCH (10:10)
[2016-08-07 11:01] VITALS: BP 138/59
--- NOTE | 2016-08-07 11:29 | DCNOTE ---
Subjective Date of Service: 08/07/16 Interval History: Patient seen and examined at bedside. She reports she has walked around the unit 6 times this morning and is very eager to go home. She denies SOB at rest but does endorse dyspnea with exertion. She continuously denies CP or back pain , abd pain, n/v. She plans to buy a pulse oximeter and check in with the nursing staff at [facility] in order to wean off her O2. Denies fever/chills. Good PO intake. Patient declined to stay for pulmonology consult but states that she saw her once before for a sarcoidosis consult and has not followed up since. She will follow-up with her in the outpatient setting. Family History: Unchanged from Admission Social History: Unchanged from Admission Past Medical History: Unchanged from Admission Objective Active Medications: Acetaminophen (Tylenol Tab*) 650 mg PO Q6H PRN PRN Reason: FEVER/PAIN Albuterol (Ventolin 2.5 Mg/3 Ml Neb.[place]*) 2.5 mg INH Q2H PRN PRN Reason: SOB/WHEEZING Last Admin: 08/06/16 13:57 Dose: 2.5 mg Amlodipine Besylate (Norvasc Tab*) 5 mg PO DAILY [facility] Last Admin: 08/07/16 09:24 Dose: 5 mg Aspirin (Aspirin Low Dose Tab*) 81 mg PO DAILY [facility] Last Admin: 08/07/16 09:24 Dose: 81 mg Docusate Sodium (Colace Cap*) 200 mg PO BID [facility] Last Admin: 08/07/16 09:26 Dose: 200 mg Heparin Sodium (Porcine) (Heparin Vial(*)) 5,000 units SUBCUT Q8HR [facility] Last Admin: 08/07/16 05:25 Dose: 5,000 units Hydralazine HCl (Apresoline Iv*) 5 mg IV SLOW PU Q6H PRN PRN Reason: BLOOD PRESSURE Last Admin: 08/05/16 17:28 Dose: 5 mg Levofloxacin (Levaquin Tab*) 750 mg PO DAILY@2000 [facility] Levothyroxine Sodium (Synthroid Tab*) 88 mcg PO DAILY@0600 [facility] Last Admin: 08/07/16 05:25 Dose: 88 mcg Melatonin (Melatonin (Nf)) 3 mg PO BEDTIME PRN; Protocol PRN Reason: Sleep Mometasone Furoate/Formoterol Fumar (Dulera 200/5 Mdi*) 2 puff INH BID [facility] Last Admin: 08/07/16 10:08 Dose: 2 puff Morphine Sulfate (Morphine Inj (Syringe)*) 1 mg IV Q2H PRN PRN Reason: air hunger Omeprazole (Prilosec Cap*) 20 mg PO DAILY@0600 [facility] Last Admin: 08/07/16 05:25 Dose: 20 mg Ondansetron HCl (Zofran Inj*) 4 mg IV Q6H PRN PRN Reason: NAUSEA Prednisone (Deltasone Tab*) 40 mg PO DAILY [facility] Last Admin: 08/07/16 09:24 Dose: 40 mg Tiotropium [place] (Spiriva Cap.Inh*) 1 cap INH DAILY [facility] Last Admin: 08/07/16 10:10 Dose: 1 cap.inh Tramadol HCl (Ultram*) 50 mg PO Q6H PRN PRN Reason: PAIN Vital Signs 08/06/16 08/06/16 08/06/16 11:48 15:24 17:04 Temperature 97.5 F 97.4 F 97.3 F Pulse Rate 81 84 85 Respiratory 20 19 20 Rate Blood Pressure 144/53 144/62 143/70 (mmHg) O2 Sat by Pulse 95 97 99 Oximetry 08/06/16 08/06/16 08/06/16 17:05 19:36 20:00 Temperature 97.4 F 97.5 F Pulse Rate 85 83 Respiratory 20 18 20 Rate Blood Pressure 143/70 139/47 (mmHg) O2 Sat by Pulse 99 98 Oximetry 08/06/16 08/06/16 08/07/16 20:06 23:16 00:12 Temperature 97.4 F Pulse Rate 70 87 Respiratory 20 18 Rate Blood Pressure 147/62 (mmHg) O2 Sat by Pulse 94 94 94 Oximetry 08/07/16 08/07/16 08/07/16 04:06 08:34 10:14 Temperature 97.7 F 97.3 F Pulse Rate 75 83 75 Respiratory 19 16 22 Rate Blood Pressure 112/60 138/59 (mmHg) O2 Sat by Pulse 94 91 97 Oximetry Oxygen Devices in Use Now: Nasal Cannula - 3Lnc Appearance: Older female patient, ambulating in halls, in NAD Eyes: PERRLA Ears/Nose/Mouth/Throat: Mucous Membranes Moist Neck: NL Appearance and Movements; NL JVP Respiratory: Symmetrical Chest Expansion and Respiratory Effort, Clear to Auscultation - prolonged exp phase, bibasilar mild wheezes Cardiovascular: NL Sounds; No Murmurs; No JVD, RRR Abdominal: NL Sounds; No Tenderness; No Distention Extremities: No Edema Skin: No Rash or Ulcers Neurological: Alert and Oriented x 3 Nutrition: Taking PO's Result Diagrams: 08/07/16 06:09 08/06/16 05:01 Additional Lab and Data: Lab Results 08/04/16 08/04/16 08/04/16 Range/Units 18:27 18:27 18:27 WBC 19.3 H (3.5-10.8) 10^3/ul RBC 5.00 (4.0-5.4) 10^6/ul Hgb 14.4 (12.0-16.0) g/dl Hct 44 (35-47) % MCV 87 (80-97) fL MCH 29 (27-31) pg MCHC 33 (31-36) g/dl RDW 14 (10.5-15) % Plt Count 365 (150-450) 10^3/ul MPV 7 L (7.4-10.4) um3 Neut % (Auto) 89.2 H (38-83) % Lymph % (Auto) 5.6 L (25-47) % Sutton % (Auto) 4.2 (1-9) % Eos % (Auto) 0.5 (0-6) % Baso % (Auto) 0.5 (0-2) % Absolute Neuts (auto) 17.2 H (1.5-7.7) 10^3/ul Absolute Lymphs (auto) 1.1 (1.0-4.8) 10^3/ul Absolute Monos (auto) 0.8 (0-0.8) 10^3/ul Absolute Eos (auto) 0.1 (0-0.6) 10^3/ul Absolute Basos (auto) 0.1 (0-0.2) 10^3/ul Absolute Nucleated RBC 0 10^3/ul Nucleated RBC % 0 INR (Anticoag Therapy) 1.10 (0.89-1.11) APTT 33.7 (26.0-36.3) seconds Sodium 133 (133-145) mmol/L Potassium 3.8 (3.5-5.0) mmol/L Chloride 98 L (101-111) mmol/L Carbon Dioxide 25 (22-32) mmol/L Anion Gap 10 (2-11) mmol/L BUN 8 (6-24) mg/dL Creatinine 0.78 (0.51-0.95) mg/dL Est GFR ( Amer) 91.2 (>60) Est GFR (Non-Af Amer) 70.9 (>60) BUN/Creatinine Ratio 10.3 (8-20) Glucose 119 H (70-100) mg/dL Lactic Acid (0.5-2.0) mmol/L Calcium 9.7 (8.6-10.3) mg/dL Magnesium 1.9 (1.9-2.7) mg/dL Total Bilirubin 0.60 (0.2-1.0) mg/dL AST 26 (13-39) U/L ALT 22 (7-52) U/L Alkaline Phosphatase 79 (34-104) U/L Total Creatine Kinase 62 (10-223) U/L CK-MB (CK-2) 3.9 (0.6-6.3) ng/mL Troponin I 0.04 H* (<0.04) ng/mL C-Reactive Protein 115.74 H (< 5.00) mg/L B-Natriuretic Peptide ( - 100) pg/mL Total Protein 7.6 (6.4-8.9) g/dL Albumin 3.8 (3.2-5.2) g/dL Globulin 3.8 (2-4) g/dL Albumin/Globulin Ratio 1.0 (1-3) Lipase 43 (11.0-82.0) U/L TSH 0.65 (0.34-5.60) mcIU/mL 08/04/16 08/04/16 Range/Units 18:27 18:27 WBC (3.5-10.8) 10^3/ul RBC (4.0-5.4) 10^6/ul Hgb (12.0-16.0) g/dl Hct (35-47) % MCV (80-97) fL MCH (27-31) pg MCHC (31-36) g/dl RDW (10.5-15) % Plt Count (150-450) 10^3/ul MPV (7.4-10.4) um3 Neut % (Auto) (38-83) % Lymph % (Auto) (25-47) % Sutton % (Auto) (1-9) % Eos % (Auto) (0-6) % Baso % (Auto) (0-2) % Absolute Neuts (auto) (1.5-7.7) 10^3/ul Absolute Lymphs (auto) (1.0-4.8) 10^3/ul Absolute Monos (auto) (0-0.8) 10^3/ul Absolute Eos (auto) (0-0.6) 10^3/ul Absolute Basos (auto) (0-0.2) 10^3/ul Absolute Nucleated RBC 10^3/ul Nucleated RBC % INR (Anticoag Therapy) (0.89-1.11) APTT (26.0-36.3) seconds Sodium (133-145) mmol/L Potassium (3.5-5.0) mmol/L Chloride (101-111) mmol/L Carbon Dioxide (22-32) mmol/L Anion Gap (2-11) mmol/L BUN (6-24) mg/dL Creatinine (0.51-0.95) mg/dL Est GFR ( Amer) (>60) Est GFR (Non-Af Amer) (>60) BUN/Creatinine Ratio (8-20) Glucose (70-100) mg/dL Lactic Acid 1.7 (0.5-2.0) mmol/L Calcium (8.6-10.3) mg/dL Magnesium (1.9-2.7) mg/dL Total Bilirubin (0.2-1.0) mg/dL AST (13-39) U/L ALT (7-52) U/L Alkaline Phosphatase (34-104) U/L Total Creatine Kinase (10-223) U/L CK-MB (CK-2) (0.6-6.3) ng/mL Troponin I (<0.04) ng/mL C-Reactive Protein (< 5.00) mg/L B-Natriuretic Peptide 112 H ( - 100) pg/mL Total Protein (6.4-8.9) g/dL Albumin (3.2-5.2) g/dL Globulin (2-4) g/dL Albumin/Globulin Ratio (1-3) Lipase (11.0-82.0) U/L TSH (0.34-5.60) mcIU/mL Microbiology and Other Data: Microbiology 08/04/16 22:39 Legionella Urinary Antigen - Final Urine Negative Legionella Streptococcus pneumoniae Ag Screen - Final Negative S. pneumo Antigen 08/04/16 22:40 Nasal Screen MRSA (PCR)([facility]) - Final Nasal Mrsa Negative 08/04/16 22:30 Influenza Types A,B Antigen ([facility]) - Final Nasopharyngeal Specimen received for Influenza A/B Molecular testing Assess/Plan/Problems-Billing Assessment: Ms. Avila is an 80 yo female with a PMH of CAD, HTN, hypothyroidism, and HLD who presented to the ED on 08/04/16 with SOB that is secondary to bronchopneumonia and COPD exacerbation. - Patient Problems (1) Community acquired pneumonia Code(s): J18.9 - PNEUMONIA, UNSPECIFIED ORGANISM Comment: Blood cultures show no growth; no sputum specimen produced Urine legionella and strep pneumo negative, rapid flu negative Continue levofloxacin for 5 day course; IV switched to PO Patient still requiring 3Lnc at rest and with exertion Plan for follow-up with PCP and pulmonology Found in previous notes that patient may have sarcoidosis; she has not sought follow-up for this. (2) Sepsis Comment: As evidenced by leukocytosis, tachycardia, tachypnea, and hypoxia WBC count improved Continue levofloxacin for 5 day course CXR shows concern for bronchopneumonia superimposed on COPD, ? sarcoidosis Outpatient pulmonology appointment (3) Elevated troponin Code(s): R79.89 - OTHER SPECIFIED ABNORMAL FINDINGS OF BLOOD CHEMISTRY Comment : Patient continues to deny chest pain Suspect secondary to demand ischemia from CAP and COPD exacerbation Patient in sinus rhythm on telemetry Max trop 0.06 (4) COPD exacerbation Code(s): J44.1 - CHRONIC OBSTRUCTIVE PULMONARY DISEASE W (ACUTE) EXACERBATION Comment: Patient not on any inhalers or nebulizers at home. No PFTs or spirometry on record but CXR suspicious for COPD Continue prn nebulizers, albuterol Continue prednisone and wean in outpatient setting Patient previously not on any maintenance inhalers or oxygen (5) HTN (hypertension) Code(s): I10 - ESSENTIAL (PRIMARY) HYPERTENSION Comment: Continue amlodipine. (6) CAD (coronary artery disease) Code(s): I25.10 - ATHSCL HEART DISEASE OF [place] CORONARY ARTERY W/O ANG PCTRS Comment: Continue ASA at 81 mg. (7) Hypothyroidism Code(s): E03.9 - HYPOTHYROIDISM, UNSPECIFIED Comment: TSH 0.65, continue levothyroxine. (8) HLD (hyperlipidemia) Code(s): E78.5 - HYPERLIPIDEMIA, UNSPECIFIED Comment: Heart healthy diet. (9) DVT prophylaxis Comment: SQ heparin Status and Disposition: Inpatient admission. D/c to home.
[2016-08-07] MEDS ORDERED: Levofloxacin TAB* 750 MG PO SCH (20:00)
--- NOTE | 2016-08-08 00:03 | DS ---
MEDICINE DISCHARGE SUMMARY: DATE OF ADMISSION: 08/04/16 DATE OF DISCHARGE: 08/07/16 PRIMARY CARE PHYSICIANS: Jada Mcdermott NP, [facility] and Anh Germain MD, Pulmonology. ATTENDING PHYSICIAN: Dr. Shukri Hernandez *(dictated by David Pearl NP). PRIMARY DISCHARGE DIAGNOSES: 1. Community-acquired pneumonia. 2. Suspected chronic obstructive pulmonary disease, will need followup spirometry. 3. Questionable history of sarcoidosis. 4. Elevated troponin. SECONDARY DISCHARGE DIAGNOSES: 1. Coronary artery disease. 2. Hypertension. 3. Hypothyroidism. 4. Hyperlipidemia. MEDICATIONS AT DISCHARGE: 1. Krill oil 1 capsule daily. 2. Multivitamin 1 tablet daily. 3. Aspirin 81 mg daily. 4. Calcium carbonate and vitamin D 1 tab daily. 5. Amlodipine 2.5 mg daily. 6. Levothyroxine 88 mcg daily. NEW MEDICATIONS AT DISCHARGE: 1. Prednisone 10 mg tabs, taper from 40 mg to 30 mg to 20 mg, then 10 mg x5 days. 2. Nebulizer machine. 3. DuoNeb nebulizer solution one treatment q.4 hours p.r.n. 4. Albuterol inhaler 1 puff inhaled q.4 hours p.r.n. 5. Levaquin 750 mg p.o. daily to complete a 5-day course. DIAGNOSTIC TESTING DURING THIS ADMISSION: Chest x-ray shows bilateral interstitial and alveolar opacities. Increased prominence of the interstitial markings compared with the prior exam. Probable small pleural effusions. Median sternotomy wires. Mild cardiomegaly. Unremarkable central pulmonary vasculature. Constellation of findings is concerning for bronchopneumonia superimposed on chronic obstructive pulmonary disease. HOSPITAL COURSE AND STAY: For full details, please refer to the H and P provided by Dr. Rizvi on 08/04/16. In summary, Ms. Thomas is an 80-year -old female who lives at [facility] with a past medical history as stated above who came into the ED for evaluation of shortness of breath. Reportedly, she had cough and gradual worsening of her symptoms since [place] and upon arrival, the patient appeared septic with leukocytosis, tachycardia, tachypnea, and hypoxia secondary to community-acquired pneumonia. She was admitted and treated with IV fluids and IV Levaquin with good effect, the patient reported improvement in her symptoms additionally. She had negative urine Legionella and S. Pneumoniae antigens and a negative flu swab. The patient also works with Physical Therapy and they felt that she had no further PT needs as she was safe with ambulation without assistive devices. There was also a question of elevated troponins upon her initial presentation with a maximum troponin of 0.06 ; however, the patient states that she previously had coronary artery disease and her main symptoms were mostly back pain and fatigue, which she does not endorse at this time. She continues to deny chest pain. The patient's troponins then improved and it was felt that this was most likely secondary to demand ischemia. The patient has had symptoms since the [place] time, but has only just recently sought treatment. Additionally, she has new oxygen requirement. Multiple attempts were made to wean the patient off oxygen during her stay; however, the patient was noted to be 80% at rest on room air, was also noted to have dropped below 87% while ambulating. The patient was very eager to get home and stated that she would pursue followup with her PCP. I did recommend that even though she does not endorse chest pain or back pain or other concerning symptoms that she may benefit from an outpatient stress test once her pneumonia clears and symptoms improved. She agreed to this. I also noted when I was looking through her old records this morning that there was a mention that the patient may have sarcoidosis back in 2014. I did ask if she pursued treatment for this and she states that she did see Dr. Prajapati one time, but then never followed up with her since then. Given that the patient has conservative COPD as well as sarcoidosis and new oxygen needs, I did recommend that she follow up with Pulmonology as well. I was able to obtain an appointment for her in order to get her evaluated by accountant cost. I did ask if she would be willing to stay for a pulmonology consult while she is an inpatient, the patient declined, wishing to go home with her family who is available at this time to take her home. We did arrange for [facility] to supply home oxygen at this time. Of note, the patient does state that before she became ill, she did not require oxygen and was able to participate in daily ADLs including grocery shopping and community events without need of oxygen or maintenance inhalers. At this point in time, we discussed continuation of inhalers and we opted to continue the patient on prednisone, which we will wean down in the outpatient setting as well as albuterol inhaler and nebulizer treatments as needed. The patient and her family are in agreement with this. On the day of discharge, the patient has been able to ambulate in the unit. She has ambulated 6 times around. She is fully dressed and eager to go. She has been afebrile. Her leukocytosis has been resolving. I did recommend the patient get an outpatient CBC and follow up with her PCP for the results. She denies chest pain, fever, chills. Breathing is controlled with her oxygen. She is not tachypneic or tachycardic. CONCERNS AT DISCHARGE: The patient will be discharged to home on 08/07/16 with a plan to follow up with her PCP and Dr. Germain. DIET: Heart healthy diet. ACTIVITY: As tolerated. CONDITION: Improved, stable. DISPOSITION: To home. TIME SPENT: Time spent on this discharge was approximately 40 minutes, more than half that time was spent [id number] with the patient and education. Again, this is only a brief summary of the patient's hospital course of stay. For full details, please refer to the full H and P. If you have any further questions or need further assistance, please feel free to contact me at [phone]. DAVID PEARL NP CC: Jada Mcdermott NP; Anh Germain MD; Víctor Joyner MD* [id number]/[facility] #: [id number] [facility]
== END 2016-08-07 12:40 | disposition home or self-care (01) | DRG 871 ==
LOC: ED 16:25 → MEDTELE 20:50 → MED 08-06 16:25
PROVIDERS: ADMIT Hospitalist; ATTEND Internal Medicine
DX: A41.9 Sepsis, unspecified organism (principal); J18.9 Pneumonia, unspecified organism; D86.9 Sarcoidosis, unspecified; I11.9 Hypertensive heart disease without heart failure; I25.810 Atherosclerosis of coronary artery bypass graft(s) without angina pectoris; J44.9 Chronic obstructive pulmonary disease, unspecified; R74.8 Abnormal levels of other serum enzymes; E03.9 Hypothyroidism, unspecified; E78.5 Hyperlipidemia, unspecified; R09.02 Hypoxemia; Z95.1 Presence of aortocoronary bypass graft; Z88.0 Allergy status to penicillin; Z88.8 Allergy status to other drugs, medicaments and biological substances; Z91.030 Bee allergy status; Z79.82 Long term (current) use of aspirin; Z79.899 Other long term (current) drug therapy; Z87.891 Personal history of nicotine dependence
CPT/HCPCS: 36415; 71020; 80048; 80053; 81003; 81015; 82550; 82553; 83605; 83690; 83735; 83880; 84443; 84484; 85025; 85610; 85730; 86140; 87040; 87086; 87502; 87641; 87899; 93005; 94640; 94664; 94760; A9270-GY; J0360; J1644; J2920; J2930; J7512

== ENCOUNTER 2020-05-14 10:07 | Inpatient (IN) ==
[2020-05-14] MEDS ORDERED: Albuterol/Ipratropium NEB.SOL (2.5/0.5 MG) 3 ML NEB.SOLN INH PRN (10:38)
[2020-05-14 11:18] LABS: ABS Basophils 0.1 10^3/ul (0-0.2); ABS Eosinophils 0.2 10^3/ul (0-0.6); ABS Lymphocytes 1.1 10^3/ul (1.0-4.8); ABS Monocytes 0.6 10^3/ul (0-0.8); ABS Neutrophils 5.8 10^3/ul (1.5-7.7); Eosinophil % 2.9 %; Hematocrit 27 % (35-47); Lymphocyte % 13.8 %; Mean Corpuscular HGB Conc 33 g/dL (31-36); Mean Corpuscular Hemoglobin 29 pg (27-31); Mean Corpuscular Volume 86 fL (80-97); Mean Platelet Volume 7.2 fL (7.4-10.4); Platelet Count 264 10^3/uL (150-450); Red Blood Count 3.13 10^6 /uL (3.70-4.87); Red Cell Distribution Width 14 % (10-15); White Blood Count 7.7 10^3/uL (3.5-10.8)
[2020-05-14] MEDS: Al Hydrox/Mg Hydrox/Simet LIQ 30 ML UDC PO PRN (14:37)
[2020-05-14] MEDS: Enoxaparin 40 MG/0.4 ML SYR SUBCUT SCH (14:38)
[2020-05-14] MEDS: Polyethylene Glycol 3350 17 GM PACKET PO PRN (17:34)
[2020-05-15 05:25] LABS: ABS Basophils 0.1 10^3/ul (0-0.2); ABS Eosinophils 0.2 10^3/ul (0-0.6); ABS Lymphocytes 1.2 10^3/ul (1.0-4.8); ABS Monocytes 0.6 10^3/ul (0-0.8); ABS Neutrophils 4.5 10^3/ul (1.5-7.7); Eosinophil % 2.9 %; Hematocrit 23 % (35-47); Hemoglobin 7.6 g/dL (12.0-16.0); Lymphocyte % 17.8 %; Mean Corpuscular HGB Conc 33 g/dL (31-36); Mean Corpuscular Hemoglobin 29 pg (27-31); Mean Corpuscular Volume 86 fL (80-97); Mean Platelet Volume 7.9 fL (7.4-10.4); Platelet Count 268 10^3/uL (150-450); Red Blood Count 2.67 10^6 /uL (3.70-4.87); Red Cell Distribution Width 14 % (10-15); White Blood Count 6.6 10^3/uL (3.5-10.8)
[2020-05-15 05:54] LABS: Albumin 2.8 g/dL (3.2-5.2); Albumin/Globulin Ratio 1.3 (1-3); BUN/Creatinine Ratio 14.7 (8-20); Calcium 7.6 mg/dL (8.6-10.3); EGFR African American 99.5 (>60); EGFR Non-African American 82.2 (>60); Globulin 2.2 g/dL (2-4); Total Bilirubin 0.5 mg/dL (0.2-1.0)
[2020-05-15] MEDS ORDERED: Aspirin EC 81 mg TAB.EC (enteric coated) PO SCH (09:00)
[2020-05-15] MEDS ORDERED: diPHENhydraMINE 25 mg TAB PO ONE (12:35)
[2020-05-15] MEDS: Enoxaparin 40 MG/0.4 ML SYR SUBCUT SCH (13:08)
[2020-05-16 06:16] LABS: ABS Basophils 0.1 10^3/ul (0-0.2); ABS Eosinophils 0.3 10^3/ul (0-0.6); ABS Monocytes 0.5 10^3/ul (0-0.8); ABS Neutrophils 5.5 10^3/ul (1.5-7.7); Eosinophil % 4.4 %; Hematocrit 34 % (35-47); Hemoglobin 11.5 g/dL (12.0-16.0); Lymphocyte % 13.7 %; Mean Corpuscular HGB Conc 34 g/dL (31-36); Mean Corpuscular Hemoglobin 29 pg (27-31); Mean Corpuscular Volume 85 fL (80-97); Mean Platelet Volume 7.3 fL (7.4-10.4); Platelet Count 269 10^3/uL (150-450); Red Blood Count 3.97 10^6 /uL (3.70-4.87); Red Cell Distribution Width 14 % (10-15); White Blood Count 7.5 10^3/uL (3.5-10.8)
[2020-05-16] MEDS: Polyethylene Glycol 3350 17 GM PACKET PO PRN (09:22)
[2020-05-16] MEDS: Enoxaparin 40 MG/0.4 ML SYR SUBCUT SCH (12:22)
[2020-05-17 07:05] LABS: ABS Basophils 0.1 10^3/ul (0-0.2); ABS Eosinophils 0.2 10^3/ul (0-0.6); ABS Lymphocytes 1.2 10^3/ul (1.0-4.8); ABS Monocytes 0.6 10^3/ul (0-0.8); ABS Neutrophils 4.4 10^3/ul (1.5-7.7); Eosinophil % 3.3 %; Hematocrit 32 % (35-47); Hemoglobin 10.9 g/dL (12.0-16.0); Lymphocyte % 19.1 %; Mean Corpuscular HGB Conc 34 g/dL (31-36); Mean Corpuscular Hemoglobin 29 pg (27-31); Mean Corpuscular Volume 86 fL (80-97); Platelet Count 281 10^3/uL (150-450); Red Blood Count 3.79 10^6 /uL (3.70-4.87); Red Cell Distribution Width 15 % (10-15); White Blood Count 6.5 10^3/uL (3.5-10.8)
[2020-05-17] MEDS: Enoxaparin 40 MG/0.4 ML SYR SUBCUT SCH (11:44)
[2020-05-17] MEDS: Al Hydrox/Mg Hydrox/Simet LIQ 30 ML UDC PO PRN (19:56)
[2020-05-18] MEDS: Aspirin EC 81 mg TAB.EC (enteric coated) PO SCH (08:17)
[2020-05-18] MEDS: Enoxaparin 40 MG/0.4 ML SYR SUBCUT SCH (14:15)
[2020-05-19 07:07] LABS: ABS Basophils 0.1 10^3/ul (0-0.2); ABS Eosinophils 0.3 10^3/ul (0-0.6); ABS Lymphocytes 1.3 10^3/ul (1.0-4.8); ABS Monocytes 0.5 10^3/ul (0-0.8); ABS Neutrophils 5.6 10^3/ul (1.5-7.7); Eosinophil % 3.7 %; Hematocrit 36 % (35-47); Hemoglobin 11.8 g/dL (12.0-16.0); Lymphocyte % 16.2 %; Mean Corpuscular HGB Conc 33 g/dL (31-36); Mean Corpuscular Hemoglobin 28 pg (27-31); Mean Corpuscular Volume 86 fL (80-97); Mean Platelet Volume 6.8 fL (7.4-10.4); Platelet Count 316 10^3/uL (150-450); Red Blood Count 4.14 10^6 /uL (3.70-4.87); Red Cell Distribution Width 15 % (10-15); White Blood Count 7.8 10^3/uL (3.5-10.8)
[2020-05-19 07:28] LABS: Albumin 3.1 g/dL (3.2-5.2); Albumin/Globulin Ratio 1.2 (1-3); BUN/Creatinine Ratio 16.2 (8-20); Calcium 8.3 mg/dL (8.6-10.3); EGFR African American 90.3 (>60); EGFR Non-African American 74.6 (>60); Globulin 2.5 g/dL (2-4); Potassium 4.3 mmol/L (3.5-5.0); Total Bilirubin 0.8 mg/dL (0.2-1.0); Total Protein 5.6 g/dL (6.4-8.9)
[2020-05-19] MEDS: Aspirin EC 81 mg TAB.EC (enteric coated) PO SCH (08:09)
[2020-05-19] MEDS: Enoxaparin 40 MG/0.4 ML SYR SUBCUT SCH (11:17)
[2020-05-20] MEDS: Aspirin EC 81 mg TAB.EC (enteric coated) PO SCH (08:34)
[2020-05-20] MEDS: Enoxaparin 40 MG/0.4 ML SYR SUBCUT SCH (12:03)
[2020-05-20] MEDS: Polyethylene Glycol 3350 17 GM PACKET PO PRN (17:18)
[2020-05-20] MEDS: Al Hydrox/Mg Hydrox/Simet LIQ 30 ML UDC PO PRN (21:52)
[2020-05-21 05:45] VITALS: BP 142/54
[2020-05-21] MEDS: Aspirin EC 81 mg TAB.EC (enteric coated) PO SCH (08:12)
[2020-05-21] MEDS: Enoxaparin 40 MG/0.4 ML SYR SUBCUT SCH (12:59)
== END 2020-05-21 16:15 | disposition home or self-care (01) | DRG 560 ==
LOC: PMRU 10:20
PROVIDERS: ADMIT Physical Medicine & Rehabilitation; ATTEND Physical Medicine & Rehabilitation